=== PATIENT | male | born 1960 | race Caucasian/White ===

== ENCOUNTER 2017-09-03 16:44 | Emergency (ER) | payer MEDICAID ==
[~2017-09-03] VITALS: Ht 162.6 cm; Wt 68.0 kg
[2017-09-03 17:39] VITALS: BP 138/105
== END 2017-09-03 18:00 | disposition home or self-care (01) ==
LOC: ER 16:45
DX: H66.91 Otitis media, unspecified, right ear (principal); F17.200 Nicotine dependence, unspecified, uncomplicated; Z88.0 Allergy status to penicillin
CPT/HCPCS: A4606; Z7610

== ENCOUNTER → 2018-01-26 | Emergency (ER) | payer MEDICAID ==
[~2018-01-26] VITALS: Ht 170.2 cm; Wt 73.9 kg
[~2018-01-26] MED LIST: CLINDAMYCIN 900 MG in IV D5W 100 ML IV ONE; CT SWABBABLE VALVE TRANS SET 1 EA INFUS.SET MC ONE; IOHEXOL-300 100 ML VIAL IV ONE; IV NS 0.9% 250 ML IV ONE; MORPHINE SULFATE INJ 2 MG/ML DISP.SYRIN IM ONE; MORPHINE SULFATE INJ 4 MG/ML DISP.SYRIN ONE; ONDANSETRON 4 MG TAB.RAPDIS PO ONE
--- NOTE | 2018-01-26 14:47 | NUR ---
PATIENT FROM HOME C/O RIGHT HAND SWELLING AND PAIN FOR 5 DAYS. A/OX4, AT BEDSIDE. VSS. AWAITING MD FOR EVAL.
--- NOTE | 2018-01-26 15:13 | NUR ---
PATIENT REFUSED ZOFRAN. PER PATIENT, HE IS NOT NAUSEOUS
[2018-01-26 16:49] VITALS: BP 135/55
--- NOTE | 2018-01-26 16:51 | NUR ---
Patient discharged to home in stable condition. Written and verbal after care instructions given. Patient verbalizes understanding of instruction. PRESCRIPTION GIVE, IV removed. Catheter intact and site benign. Pressure and 4x4 applied to site. No bleeding noted.
== END ==
LOC: ER 14:29
DX: L03.114 Cellulitis of left upper limb (principal); F17.200 Nicotine dependence, unspecified, uncomplicated; Z88.0 Allergy status to penicillin
CPT/HCPCS: 96365; 96372; 99284; A4606; J2270; J3490; J7060; Z7610; J7050; Q9967

== ENCOUNTER 2018-01-28 05:02 | Emergency (ER) | payer MEDICAID ==
[~2018-01-28] VITALS: Ht 170.2 cm; Wt 72.6 kg
--- NOTE | 2018-01-28 05:25 | NUR ---
PT BBSELF FROM HOME C/C RIGHT HAND PAIN. R HAND SWELLING/REDNESS NOTED. PT STATES THROBBING PAIN 8/10 NON RADIATING. NO DISCHARGE NOTED. PT IS AAOX4. SKIN WNL. NO S/S OF ACUTE DISTRESS NOTED. RESP EVEN AND UNLABORED. PT PLACED ON MONITOR AND POX. PT SAFETY AND COMFORT MEASURES IN PLACE. AWAITING MD FOR EVAL.
[2018-01-28] MEDS ORDERED: VANCOMYCIN 1 GM VIAL ONE (05:27)
[2018-01-28] MEDS ORDERED: MORPHINE SULFATE INJ 4 MG/ML DISP.SYRIN ONE (05:27)
[2018-01-28] MEDS ORDERED: ONDANSETRON HCL/PF 4 MG/2 ML VIAL ONE (05:27)
[2018-01-28] MEDS ORDERED: VANCOMYCIN 1 GM in IV D5W 250 ML IV ONE (05:30)
[2018-01-28] MEDS ORDERED: ONDANSETRON HCL/PF 4 MG/2 ML VIAL IVP ONE (05:30)
[2018-01-28] MEDS ORDERED: IV NS 0.9% 1,000 ML BAG IV ONE (05:30)
[2018-01-28] MEDS ORDERED: MORPHINE SULFATE INJ 2 MG/ML DISP.SYRIN IV ONE (05:30)
[2018-01-28 05:36] LABS: BASOPHILS % (AUTO) 0.2 % (0.0-2.0); EOSINOPHILS % (AUTO) 1.3 % (0.0-6.0); HEMATOCRIT 49 % (39-51); HEMOGLOBIN 16.5 g/dL (13.5-17.5); LYMPHOCYTES # (AUTO) 1.8 /CMM (0.8-4.8); LYMPHOCYTES % (AUTO) 17.6 % (20.0-44.0); MEAN CORPUSCULAR HEMOGLOBIN 31 PG (26.0-33.0); MEAN CORPUSCULAR HGB CONC 34 g/dl (31.0-36.0); MEAN CORPUSCULAR VOLUME 92 fL (80-96); MONOCYTES # (AUTO) 0.7 /CMM (0.1-1.30); MONOCYTES % (AUTO) 6.7 % (2.0-12.0); NEUTROPHILS # (AUTO) 7.8 /CMM (1.8-8.9); NEUTROPHILS % (AUTO) 74.2 % (43.0-81.0); PLATELET COUNT (AUTO) 284 /CMM (150-450); RDW COEFFICIENT OF VARIATION 12.9 (11.5-15.0); RED BLOOD CELL COUNT(AUTO) 5.25 MIL/uL (4.5-6.0); WHITE BLOOD COUNT (AUTO) 10.5 K/uL (4.3-11.0)
[2018-01-28 05:52] LABS: CALCIUM, SERUM 8.7 mg/dL (8.5-10.1); CREATININE 1.2 mg/dL (0.6-1.3); POTASSIUM 4.1 mmol/L (3.5-5.1)
--- NOTE | 2018-01-28 06:15 | NUR ---
PT TO CT
--- NOTE | 2018-01-28 06:30 | NUR ---
PT BACK FROM CT
[2018-01-28] MEDS ORDERED: KETOROLAC TROMETHAMINE INJ 30 MG/ML VIAL ONE (06:56)
[2018-01-28] MEDS ORDERED: KETOROLAC TROMETHAMINE INJ 30 MG/ML VIAL IV ONE (07:00)
--- NOTE | 2018-01-28 07:02 | NUR ---
Patient discharged to home in stable condition. Written and verbal after care instructions given. Patient verbalizes understanding of instruction.IV removed. Catheter intact and site benign. Pressure and 4x4 applied to site. No bleeding noted. NO S/S OF DISTRESS UPON DISCHARGE
[2018-01-28 07:05] VITALS: BP 108/65
== END 2018-01-28 07:04 | disposition home or self-care (01) ==
LOC: ER 05:04
DX: L03.113 Cellulitis of right upper limb (principal); F17.200 Nicotine dependence, unspecified, uncomplicated; Z88.0 Allergy status to penicillin
CPT/HCPCS: 36415; 73201; 80048; 85025; 87040 ×2; 96365; 96375 ×2; 99285; 99406; A4606 ×2; J1885; J2270; J2405; J3370; J7030; Z7610

== ENCOUNTER 2019-11-05 23:10 | Emergency (ER) | payer MEDICAID, OTHER ==
[~2019-11-05] VITALS: Ht 170.2 cm; Wt 74.8 kg
[2019-11-05 23:17] VITALS: BP 152/98
--- NOTE | 2019-11-05 23:26 | NUR ---
rapid strep swab sent to lab
== END 2019-11-06 00:28 | disposition home or self-care (01) ==
LOC: ER 23:10
DX: J02.9 Acute pharyngitis, unspecified (principal); F17.200 Nicotine dependence, unspecified, uncomplicated; Z88.0 Allergy status to penicillin
CPT/HCPCS: 86403-TC; 87070-TC

== ENCOUNTER 2019-11-10 14:20 | Emergency (ER) | payer OTHER ==
[~2019-11-10] VITALS: Ht 170.2 cm; Wt 72.6 kg
[2019-11-10 14:22] VITALS: BP 145/90
--- NOTE | 2019-11-10 14:45 | NUR ---
AT BEDSIDE FOR EVAL.
--- NOTE | 2019-11-10 15:10 | NUR ---
Patient discharged to home in stable condition. Written and verbal after care instructions given. Patient verbalizes understanding of instruction.
== END 2019-11-10 15:11 | disposition home or self-care (01) ==
LOC: ER 14:22
DX: J30.89 Other allergic rhinitis (principal); R09.82 Postnasal drip; Z88.0 Allergy status to penicillin

== ENCOUNTER 2023-03-11 13:46 | Emergency (ER) | payer OTHER ==
[~2023-03-11] VITALS: Ht 170.2 cm; Wt 70.3 kg
[2023-03-11] MEDS ORDERED: HYDR30CR79 TP (14:57)
[2023-03-11] MEDS ORDERED: DOCU100C36 PO (14:57)
[2023-03-11 15:15] VITALS: BP 151/67; TEMP 97.9; O2SAT 100
== END 2023-03-11 15:16 | disposition home or self-care (01) ==
LOC: ER 13:51
DX: K64.9 Unspecified hemorrhoids (principal); F17.200 Nicotine dependence, unspecified, uncomplicated; Z88.0 Allergy status to penicillin